=== PATIENT | female | born 1990 ===

== ENCOUNTER 2024-03-18 09:45 | Inpatient (IN) | payer OTHER ==
[~2024-03-18] VITALS: Ht 167.6 cm; Wt 3.2 kg
[2024-03-19 19:00] VITALS: BP 150/88
[2024-03-19 19:10] LABS: HEMOGLOBIN 9.2 g/dL (12.0-15.00); MEAN CORPUSCULAR HEMOGLOBIN 22.6 pg (27.00-32.0); MEAN CORPUSCULAR HGB CONC 31.8 g/dl (32.0-36.0); PLATELET COUNT 250 K/uL (150-450); RED BLOOD COUNT 4.08 M/uL (4.00-6.00); RED CELL DISTRIBUTION WIDTH 18.2 % (11.5-14.5)
[2024-03-19 19:11] LABS: URINE APPEARANCE Cloudy; URINE BILIRRUBIN Negative (NEGATIVE); URINE BLOOD Negative; URINE COLOR Yellow; URINE GLUCOSE Negative (NEGATIVE); URINE KETONE Negative (NEGATIVE); URINE LEUKOCYTE Small; URINE NITRATE Negative; URINE UROBILINOGEN 0.2 E.U./dl
[2024-03-19 19:14] LABS: URINE BACTERIA 5773.5 uL (0.0-1933); URINE EPITHELIAL CELLS 198.1 uL (0.0-38.8); URINE WBC 25.8 uL (0.0-23.2)
[2024-03-19 19:36] LABS: URINE CAST 1.32 uL (0.0-1.40); URINE PROTEIN 100 (NEGATIVE); URINE RBC 1.3 uL (0.0-20.8)
[2024-03-19 19:37] LABS: PARTIAL THROMBOPLASTIN TIME 24.4 SECONDS (22.0-34.0); PROTHROMBIN TIME 10.9 SECONDS (9.0-11.5)
[2024-03-19 19:59] LABS: ALBUMIN 2.9 gm/dL (3.4-5.0); BILIRUBIN TOTAL 0.22 mg/dL (0.3-1.2); CALCIUM 9.5 mg/dL (8.5-10.1); CREATININE SERUM 0.62 mg/dL (0.55-1.02); GFR 109.54; POTASSIUM 4.26 mEq/L (3.5-5.1); TOTAL PROTEIN 6.9 gm/dL (6.4-8.2)
[2024-03-19] MEDS ORDERED: IRON325 MG PO (20:07)
[2024-03-19] MEDS ORDERED: PRENATAL TABLE1 EAC4 PO (20:07)
[2024-03-19] MEDS ORDERED: PROAIR RESPICL90 MCG IH (20:08)
[2024-03-19 20:10] VITALS: BP 150/97
[2024-03-19] MEDS ORDERED: MAGNESIUM SULFATE IN WATER 100 ML IV ONE (21:30)
[2024-03-19] MEDS ORDERED: RINGERS SOLUTION,LACTATED 1,000 ML IV SCH (21:30)
[2024-03-19] MEDS ORDERED: AZITHROMYCIN 500 MG TABLET PO STA (21:31)
[2024-03-19] MEDS ORDERED: GUAIFENESIN 200 MG/10 ML BLIST.PACK PO SCH (21:32)
[2024-03-19] MEDS ORDERED: MAGNESIUM SULFATE IN WATER 500 ML IV SCH (21:45)
[2024-03-19] MEDS ORDERED: hydrOXYzine PAMOATE 25 MG CAPSULE PO STA (21:54)
[2024-03-19] MEDS ORDERED: ACETAMINOPHEN 500 MG GEL..CAP PO PRN (22:00)
[2024-03-19 23:16] VITALS: BP 132/76
[2024-03-20 04:07] VITALS: BP 135/80
[2024-03-20 07:27] VITALS: BP 120/66
[2024-03-20] MEDS ORDERED: ALBUTEROL SULFATE 3 ML/2.5 MG AMPUL.NEB IH SCH (08:15)
[2024-03-20 12:27] VITALS: BP 129/75
[2024-03-20 15:58] VITALS: BP 116/68; BP 136/75
[2024-03-20] MEDS ORDERED: AZITHROMYCIN 250 MG TABLET PO SCH (17:00)
[2024-03-20 19:04] VITALS: BP 143/83
[2024-03-20 23:29] VITALS: BP 136/74
[2024-03-20] MEDS ORDERED: hydrOXYzine PAMOATE 25 MG CAPSULE PO SCH (23:45)
[2024-03-21 04:00] VITALS: BP 135/83
[2024-03-21 07:37] VITALS: BP 128/78
[2024-03-21] MEDS ORDERED: AMPICILLIN SODIUM 2,000 MG VIAL IV ONE (11:15)
[2024-03-21 11:22] VITALS: BP 147/90
[2024-03-21 15:16] VITALS: BP 134/78
[2024-03-21] MEDS ORDERED: AMPICILLIN SODIUM 1,000 MG VIAL IV SCH (16:00)
[2024-03-21 20:07] VITALS: BP 135/72
[2024-03-21] MEDS ORDERED: MISOPROSTOL 25 MCG TABLET VAG ONE (21:00)
[2024-03-21 23:39] VITALS: BP 136/73
[2024-03-22 04:30] VITALS: BP 135/83
[2024-03-22 08:20] VITALS: BP 139/85
[2024-03-22] MEDS ORDERED: OXYTOCIN 500 ML IV SCH (11:00)
[2024-03-22 11:34] VITALS: BP 148/91
[2024-03-22] MEDS ORDERED: RINGERS SOLUTION,LACTATED 1,000 ML IV SCH (12:00)
[2024-03-22] MEDS ORDERED: ACETAMINOPHEN 500 MG GEL..CAP PO SCH (12:00)
[2024-03-22] MEDS ORDERED: KETOROLAC TROMETHAMINE 30 MG VIAL IV SCH (12:00)
[2024-03-22] MEDS ORDERED: OXYTOCIN 1,000 ML IV ONE (12:00)
[2024-03-22] MEDS ORDERED: MORPHINE SULFATE 4 MG/ML CARTRIDGE IV PRN (12:00)
[2024-03-22] MEDS ORDERED: ONDANSETRON HCL 2 MG/ML VIAL IV SCH (12:00)
[2024-03-22] MEDS ORDERED: MAGNESIUM SULFATE IN WATER 500 ML IV SCH (13:00)
[2024-03-22] MEDS ORDERED: MORPHINE SULFATE 4 MG/ML VIAL IV ONE ×2 (13:30→14:00)
[2024-03-22 14:25] VITALS: BP 136/88
[2024-03-22 15:09] VITALS: BP 136/88
[2024-03-22] MEDS ORDERED: OXYTOCIN 10 UNITS/ML VIAL IV ONE (16:45)
[2024-03-22] MEDS ORDERED: ERYTHROMYCIN BASE OPHT 1GM EACH TUBE OP ONE (16:45)
[2024-03-22] MEDS ORDERED: GABAPENTIN 300 MG CAPSULE PO SCH (17:00)
[2024-03-22] MEDS ORDERED: SIMETHICONE 125 MG CAPSULE PO SCH (17:00)
[2024-03-22 23:05] VITALS: BP 136/89; O2SAT 97
[2024-03-23 01:03] VITALS: BP 127/81; O2SAT 97
[2024-03-23 06:49] LABS: HEMATOCRIT 24.1 % (36.0-45.00); MEAN CELL VOLUME 70.9 fL (80.00-100.00); MEAN CORPUSCULAR HGB CONC 32.6 g/dl (32.0-36.0); PLATELET COUNT 217 K/uL (150-450); RED BLOOD COUNT 3.39 M/uL (4.00-6.00); RED CELL DISTRIBUTION WIDTH 18.7 % (11.5-14.5)
[2024-03-23 06:53] LABS: HEMOGLOBIN 7.8 g/dL (12.0-15.00)
[2024-03-23 07:28] LABS: ALBUMIN 2.2 gm/dL (3.4-5.0); BILIRUBIN TOTAL 0.31 mg/dL (0.3-1.2); CALCIUM 8.3 mg/dL (8.5-10.1); CREATININE SERUM 0.55 mg/dL (0.55-1.02); GFR 125.78; GLOBULINA 3.3 G/DL (2.4-3.5); POTASSIUM 4.44 mEq/L (3.5-5.1); TOTAL PROTEIN 5.5 gm/dL (6.4-8.2)
[2024-03-23] MEDS ORDERED: OxyCODONE HCL 5 MG TABLET (ROXICODONE) PO PRN (08:00)
[2024-03-23] MEDS ORDERED: KETOROLAC TROMETHAMINE 10 MG TABLET PO SCH (08:00)
[2024-03-23 08:19] VITALS: BP 130/80
[2024-03-23] MEDS ORDERED: DOCUSATE SODIUM 100MG CAP PO SCH (09:00)
[2024-03-23] MEDS ORDERED: SOD FERRIC GLUC COMPLX/SUCROSE 125 MG in 0.9 % SODIUM CHLORIDE 100 ML IV SCH (09:00)
[2024-03-23 13:02] VITALS: BP 132/83
[2024-03-23 16:35] VITALS: BP 136/86
[2024-03-23 23:40] VITALS: BP 137/88
[2024-03-24 07:35] VITALS: BP 123/81
== END 2024-03-24 15:47 | disposition home or self-care (01) | DRG 787 ==
LOC: LDR 03-19 17:35 → OB/GYN 03-22 13:08 → LDR 04-10 09:45
PROVIDERS: Obstetrics & Gynecology; ADMIT Obstetrics & Gynecology; ATTEND Obstetrics & Gynecology
PROC: 4A1HXCZ Monitoring of Products of Conception, Cardiac Rate, External Approach (ICD-10-PCS; 2024-03-19)
PROC: 3E0F7GC Introduction of Other Therapeutic Substance into Respiratory Tract, Via Natural or Artificial Opening (ICD-10-PCS; 2024-03-20)
PROC: 8E0ZXY6 Isolation (ICD-10-PCS; 2024-03-20)
PROC: 3E0P7VZ Introduction of Hormone into Female Reproductive, Via Natural or Artificial Opening (ICD-10-PCS; 2024-03-21)
PROC: 10D00Z1 Extraction of Products of Conception, Low, Open Approach (ICD-10-PCS; principal; 2024-03-22)
PROC: 3E033VJ Introduction of Other Hormone into Peripheral Vein, Percutaneous Approach (ICD-10-PCS; 2024-03-22)
DX: O61.0 Failed medical induction of labor (principal); O98.52 Other viral diseases complicating childbirth; B96.0 Mycoplasma pneumoniae [M. pneumoniae] as the cause of diseases classified elsewhere; O14.14 Severe pre-eclampsia complicating childbirth; Z3A.37 37 weeks gestation of pregnancy; Z37.0 Single live birth; Z20.822 Contact with and (suspected) exposure to COVID-19